=== PATIENT | female | born 1960 | race Caucasian/White ===

== ENCOUNTER → 2016-09-14 | Outpatient (CLI) | payer BC ==
--- NOTE | 2016-09-15 07:16 | MM ---
Reason for exam: screening (asymptomatic). Last mammogram was performed 1 year ago. History: Patient is postmenopausal and history of other cancer. Family history of breast cancer in mother at age 74. Benign left mammotome panel of the left breast, December 09, 2011. Benign left mammotome panel of the left breast, December 09, 2011. Physical Findings: A clinical breast exam by your physician is recommended on an annual basis and results should be correlated with mammographic findings. MG Screening Mammo w CAD Bilateral CC and MLO view(s) were taken. Prior study comparison: September 06, 2015, bilateral MG screening mammo w CAD. August 14, 2014, bilateral MG diagnostic mammo w CAD JENNIFER. There are scattered fibroglandular densities. Previous mammotome biopsy in the left breast x 2. No significant changes when compared with prior studies. ASSESSMENT: Benign, BI-RAD 2 RECOMMENDATION: Routine screening mammogram of both breasts in 1 year.
== END | disposition home or self-care (01) ==
LOC: RADMAMWWP 07:38
PROVIDERS: ATTEND Obstetrics & Gynecology
DX: Z12.31 Encounter for screening mammogram for malignant neoplasm of breast (principal)

== ENCOUNTER → 2017-09-27 | Outpatient (CLI) | payer BC ==
--- NOTE | 2017-09-28 09:36 | MM ---
Reason for exam: screening (asymptomatic). Last mammogram was performed 1 year ago. History: Patient is postmenopausal and history of other cancer. Family history of breast cancer in mother at age 74. Benign left mammotome panel of the left breast, December 09, 2011. Benign left mammotome panel of the left breast, December 09, 2011. Physical Findings: A clinical breast exam by your physician is recommended on an annual basis and results should be correlated with mammographic findings. MG 3D Screening Mammo W/Cad Bilateral CC and MLO view(s) were taken. Prior study comparison: September 14, 2016, bilateral MG screening mammo w CAD. September 06, 2015, bilateral MG screening mammo w CAD. The breast tissue is heterogeneously dense. This may lower the sensitivity of mammography. Previous mammotome biopsy in the left breast. No significant changes when compared with prior studies. ASSESSMENT: Benign, BI-RAD 2 RECOMMENDATION: Routine screening mammogram of both breasts in 1 year.
== END | disposition home or self-care (01) ==
LOC: RADMAMWWP 07:13
PROVIDERS: ATTEND Obstetrics & Gynecology
DX: Z12.31 Encounter for screening mammogram for malignant neoplasm of breast (principal)
CPT/HCPCS: 77063; 77067

== ENCOUNTER → 2018-09-28 | Outpatient (CLI) | payer BC ==
--- NOTE | 2018-09-29 10:08 | MM ---
Reason for exam: screening (asymptomatic). Last mammogram was performed 1 year ago. History: Patient is postmenopausal and history of other cancer. Family history of breast cancer in mother at age 74. Benign left mammotome panel of the left breast, December 09, 2011. Benign left mammotome panel of the left breast, December 09, 2011. Physical Findings: A clinical breast exam by your physician is recommended on an annual basis and results should be correlated with mammographic findings. MG 3D Screening Mammo W/Cad Bilateral CC and MLO view(s) were taken. Prior study comparison: September 27, 2017, bilateral MG 3d screening mammo w/cad. September 14, 2016, bilateral MG screening mammo w CAD. There are scattered fibroglandular densities. Previous mammotome biopsy in the left breast. There is chronic nodularity bilaterally. No significant changes when compared with prior studies. ASSESSMENT: Benign, BI-RAD 2 RECOMMENDATION: Routine screening mammogram of both breasts in 1 year.
== END | disposition home or self-care (01) ==
LOC: RADMAMWWP 07:50
PROVIDERS: ATTEND Obstetrics & Gynecology
DX: Z12.31 Encounter for screening mammogram for malignant neoplasm of breast (principal)
CPT/HCPCS: 77063; 77067

== ENCOUNTER → 2019-10-05 | Outpatient (CLI) | payer BC ==
--- NOTE | 2019-10-06 10:58 | MM ---
Reason for exam: screening (asymptomatic). Last mammogram was performed 1 year ago. History: Patient is postmenopausal and history of other cancer. Family history of breast cancer in mother at age 74. Benign left mammotome panel of the left breast, December 09, 2011. Benign left mammotome panel of the left breast, December 09, 2011. Physical Findings: A clinical breast exam by your physician is recommended on an annual basis and results should be correlated with mammographic findings. MG 3D Screening Mammo W/Cad Bilateral CC and MLO view(s) were taken. Prior study comparison: September 28, 2018, bilateral MG 3d screening mammo w/cad. September 27, 2017, bilateral MG 3d screening mammo w/cad. The breast tissue is heterogeneously dense. This may lower the sensitivity of mammography. Finding: There is a typically benign multiple varied sized oval round masses in the right breast consistent with waxing and waning cysts. ASSESSMENT: Benign, BI-RAD 2 RECOMMENDATION: Routine screening mammogram of both breasts in 1 year.
== END | disposition home or self-care (01) ==
LOC: RADMAMWWP 08:33
PROVIDERS: ATTEND Obstetrics & Gynecology
DX: Z12.31 Encounter for screening mammogram for malignant neoplasm of breast (principal)
CPT/HCPCS: 77063; 77067

== ENCOUNTER → 2019-11-07 | Outpatient (CLI) | payer BC | END | disposition home or self-care (01) | LOC: RADBDWWP 07:08 | PROVIDERS: ATTEND Obstetrics & Gynecology | DX: Z53.9 Procedure and treatment not carried out, unspecified reason (principal) ==

== ENCOUNTER → 2019-11-17 | Outpatient (CLI) | payer BC ==
--- NOTE | 2019-11-17 18:34 | BD ---
EXAMINATION TYPE: Axial Bone Density DATE OF EXAM: 11/17/2019 COMPARISON: 08.14.2014 CLINICAL HISTORY: 58 YR OLD FEMALE.....ICD-10 CODE: Z78.0 POST MENOPAUSAL Height: 64.4 Weight: 281 FRAX RISK QUESTIONS: NOTHING TO NOTE HERE RISK FACTORS HISTORY OF: Postmenopausal woman: YES, ABLATION, 8 YRS AGO...UNSURE OF WHEN HORMONAL MENOPAUSE OCCURED Hyperparathyroidism: NO Adrenal Insufficiency: NO MEDICATIONS: Additional Medications: MULTIVITAMIN ONLY Additional History: NOTHING ADDITIONAL TO ADD EXAM MEASUREMENTS: Bone mineral densitometry was performed using the True Fit System. Bone mineral density as measured about the Lumbar spine is: ----- L1-L4(G/cm2): 1.836 T Score Values are as follows: ----- L1 5.0 ----- L2: 4.3 ----- L3: 6.5 ----- L4: 5.5 ----- L1-L4: 5.5 Bone mineral density has: Increased 5.3% since study of: 08.14.2014 Bone mineral density about the R hip (g/cm2): 1.134 Bone mineral density about the L hip (g/cm2): 1.378 T Score values are as follows: -----R Neck: 1.0 -----L Neck: 1.4 -----R Total: 2.6 -----L Total: 2.9 Bone mineral density has: Increased 4.8% since study of: 08.14.2014 FRAX%s: THERE IS A 4.1% CHANCE FOR A MAJOR OSTEOPOROTIC FX AND A 0.0% FOR HIP.....PROBABILITY FOR F X IN 10 YRS TIME IMPRESSION: Normal (Values between +1 and -1 indicate normal bone mass). Consider repeating this study in 5 year s or sooner if there is some new clinical indication. NOTE: T-SCORE=SD OF THE YOUNG ADULT MEAN.
== END | disposition home or self-care (01) ==
LOC: LABWHC1 07:15
PROVIDERS: ATTEND Obstetrics & Gynecology
DX: Z78.0 Asymptomatic menopausal state (principal)
CPT/HCPCS: 77080

== ENCOUNTER 2020-10-06 14:49 | Emergency (ER) | payer BC ==
[2020-10-06 14:58] VITALS: TEMP 98.3
[2020-10-06] MEDS ORDERED: SODIUM CHLORIDE 0.9% 500 ML 500 ML IV STA (15:25)
--- NOTE | 2020-10-06 15:38 | ED ---
General Adult HPI - General Chief complaint: Arrhythmia/Palpitations Stated complaint: Palpitations Time Seen by Provider: 10/06/20 15:25 Source: patient, RN notes reviewed, old records reviewed Mode of arrival: wheelchair Limitations: no limitations - History of Present Illness Initial comments: 59-year-old female presenting with palpitations, history of anxiety and recurrent panic attacks. She states she had nothing to be anxious about she was undergoing a family barbecue. She was swimming in the pool, began feeling palpitations. No associated pain. She states she got a dry mouth and some nausea. She did recently start Prozac about 9 days ago. She does have history of previous panic attacks. Symptoms have improved time my evaluation she still some nausea. No chest pain or abdominal pain. No focal numbness or weakness. - Related Data Home Medications Medication Instructions Recorded Confirmed ALPRAZolam [Xanax] 0.5 mg PO TID PRN 09/16/15 09/16/15 FLUoxetine HCL [PROzac] 40 mg PO DAILY 09/16/15 09/16/15 Allergies Allergy/AdvReac Type Severity Reaction Status Date / Time shellfish derived [Shellfish] Allergy Unknown Verified 10/06/20 14:58 Review of Systems ROS Statement: Those systems with pertinent positive or pertinent negative responses have been documented in the HPI. ROS Other: All systems not noted in ROS Statement are negative. Past Medical History Past Medical History: No Reported History History of Any Multi-Drug Resistant Organisms: None Reported Additional Past Surgical History / Comment(s): D&C, cone biopsy Past Psychological History: Anxiety Smoking Status: Never smoker Past Alcohol Use History: None Reported Past Drug Use History: None Reported General Exam Limitations: no limitations General appearance: alert, in no apparent distress Head exam: Present: atraumatic, normocephalic Eye exam: Present: normal appearance, PERRL ENT exam: Present: normal exam Neck exam: Present: normal inspection. Absent: tenderness, meningismus Respiratory exam: Present: normal lung sounds bilaterally. Absent: respiratory distress, wheezes Cardiovascular Exam: Present: regular rate, normal rhythm GI/Abdominal exam: Present: soft. Absent: distended, tenderness, guarding Extremities exam: Present: normal inspection, normal capillary refill. Absent: pedal edema Neurological exam: Present: alert, oriented X3, CN II-XII intact. Absent: motor sensory deficit Psychiatric exam: Present: anxious Skin exam: Present: warm, dry, intact Course Vital Signs 10/06/20 10/06/20 14:56 16:18 Temperature 98.3 F Pulse Rate 79 83 Respiratory 20 18 Rate Blood Pressure 146/76 162/73 O2 Sat by Pulse 100 98 Oximetry EKG Findings - EKG Comments: EKG Findings:: EKG: Normal sinus rhythm, rate of 77, WA interval 168, QRS d uration 96, QTC 420, no ST segment elevation, there is some baseline artifact. Medical Decision Making - Medical Decision Making 29-year-old female with palpitations, anxiety and nausea. Patient well- appearing. Patient is in sinus rhythm. Chest x-ray is clear. She has normal CBC, normal CMP, negative troponin, negative urinalysis. She is reassured and believes this is probably related to her Prozac. She will contact her primary care physician tomorrow. Return parameters are discussed. - Lab Data Result diagrams: 10/06/20 15:32 10/06/20 15:32 Lab Results 10/06/20 10/06/20 10/06/20 Range/Units 15:32 15:32 15:32 WBC 5.8 (3.8-10.6) k/uL RBC 4.89 (3.80-5.40) m/uL Hgb 15.1 (11.4-16.0) gm/dL Hct 45.0 (34.0-46.0) % MCV 91.9 (80.0-100.0) fL MCH 30.8 (25.0-35.0) pg MCHC 33.5 (31.0-37.0) g/dL RDW 13.0 (11.5-15.5) % Plt Count 282 (150-450) k/uL MPV 6.7 Neutrophils % 61 % Lymphocytes % 28 % Monocytes % 6 % Eosinophils % 2 % Basophils % 1 % Neutrophils # 3.5 (1.3-7.7) k/uL Lymphocytes # 1.6 (1.0-4.8) k/uL Monocytes # 0.3 (0-1.0) k/uL Eosinophils # 0.1 (0-0.7) k/uL Basophils # 0.1 (0-0.2) k/uL PT 9.8 (9.0-12.0) sec INR 0.9 (<1.2) APTT 22.7 (22.0-30.0) sec Sodium (137-145) mmol/L Potassium (3.5-5.1) mmol/L Chloride (98-107) mmol/L Carbon Dioxide (22-30) mmol/L Anion Gap mmol/L BUN (7-17) mg/dL Creatinine (0.52-1.04) mg/dL Est GFR (CKD-EPI)AfAm (>60 ml/min/1.73 sqM) Est GFR (CKD-EPI)NonAf (>60 ml/min/1.73 sqM) Glucose (74-99) mg/dL Calcium (8.4-10.2) mg/dL Magnesium (1.6-2.3) mg/dL Total Bilirubin (0.2-1.3) mg/dL AST (14-36) U/L ALT (4-34) U/L Alkaline Phosphatase (38-126) U/L Troponin I (0.000-0.034) ng/mL Total Protein (6.3-8.2) g/dL Albumin (3.5-5.0) g/dL Urine Color Yellow Urine Appearance Cloudy H (Clear) Urine pH 6.5 (5.0-8.0) Ur Specific [place] 1.024 (1.001-1.035) Urine Protein Negative (Negative) Urine Glucose (UA) Negative (Negative) Urine Ketones Negative (Negative) Urine Blood Negative (Negative) Urine Nitrite Negative (Negative) Urine Bilirubin Negative (Negative) Urine Urobilinogen <2.0 (<2.0) mg/dL Ur Leukocyte Esterase Negative (Negative) Urine RBC 2 (0-5) /hpf Urine WBC 2 (0-5) /hpf Ur Squamous Epith Cells 6 H (0-4) /hpf Urine Bacteria Rare H (None) /hpf Hyaline Casts 1 (0-2) /lpf Urine Mucus Rare H (None) /hpf 10/06/20 10/06/20 Range/Units 15:32 15:32 WBC (3.8-10.6) k/uL RBC (3.80-5.40) m/uL Hgb (11.4-16.0) gm/dL Hct (34.0-46.0) % MCV (80.0-100.0) fL MCH (25.0-35.0) pg MCHC (31.0-37.0) g/dL RDW (11.5-15.5) % Plt Count (150-450) k/uL MPV Neutrophils % % Lymphocytes % % Monocytes % % Eosinophils % % Basophils % % Neutrophils # (1.3-7.7) k/uL Lymphocytes # (1.0-4.8) k/uL Monocytes # (0-1.0) k/uL Eosinophils # (0-0.7) k/uL Basophils # (0-0.2) k/uL PT (9.0-12.0) sec INR (<1.2) APTT (22.0-30.0) sec Sodium 142 (137-145) mmol/L Potassium 4.4 (3.5-5.1) mmol/L Chloride 106 (98-107) mmol/L Carbon Dioxide 24 (22-30) mmol/L Anion Gap 12 mmol/L BUN 18 H (7-17) mg/dL Creatinine 0.66 (0.52-1.04) mg/dL Est GFR (CKD-EPI)AfAm >90 (>60 ml/min/1.73 sqM) Est GFR (CKD-EPI)NonAf >90 (>60 ml/min/1.73 sqM) Glucose 138 H (74-99) mg/dL Calcium 9.1 (8.4-10.2) mg/dL Magnesium 2.2 (1.6-2.3) mg/dL Total Bilirubin 0.1 L (0.2-1.3) mg/dL AST 23 (14-36) U/L ALT 20 (4-34) U/L Alkaline Phosphatase 66 (38-126) U/L Troponin I <0.012 (0.000-0.034) ng/mL Total Protein 7.0 (6.3-8.2) g/dL Albumin 4.1 (3.5-5.0) g/dL Urine Color Urine Appearance (Clear) Urine pH (5.0-8.0) Ur Specific [place] (1.001-1.035) Urine Protein (Negative) Urine Glucose (UA) (Negative) Urine Ketones (Negative) Urine Blood (Negative) Urine Nitrite (Negative) Urine Bilirubin (Negative) Urine Urobilinogen (<2.0) mg/dL Ur Leukocyte Esterase (Negative) Urine RBC (0-5) /hpf Urine WBC (0-5) /hpf Ur Squamous Epith Cells (0-4) /hpf Urine Bacteria (None) /hpf Hyaline Casts (0-2) /lpf Urine Mucus (None) /hpf Disposition Clinical Impression: Palpitations Disposition: HOME SELF-CARE Condition: Good Instructions (If sedation given, give patient instructions): Heart Palpitations (ED) Is patient prescribed a controlled substance at d/c from ED?: No Referrals: Paulino Nieves MD [Primary Care Provider] - 1-2 days Time of Disposition: 16:54
[2020-10-06 15:42] LABS: Basophils # (A) 0.1 k/uL (0-0.2); Basophils % (A) 1 %; Eosinophils # (A) 0.1 k/uL (0-0.7); Eosinophils % (A) 2 %; HGB 15.1 gm/dL (11.4-16.0); Lymphocytes # (A) 1.6 k/uL (1.0-4.8); Lymphocytes % (A) 28 %; MCH 30.8 pg (25.0-35.0); MCHC 33.5 g/dL (31.0-37.0); MCV 91.9 fL (80.0-100.0); Mean Platelet Volume 6.7; Monocytes # (A) 0.3 k/uL (0-1.0); Monocytes % (A) 6 %; Neutrophils # (A) 3.5 k/uL (1.3-7.7); Neutrophils % (A) 61 %; Platelet Count 282 k/uL (150-450); RBC 4.89 m/uL (3.80-5.40); WBC 5.8 k/uL (3.8-10.6)
[2020-10-06 15:50] LABS: INR 0.9 (<1.2); Partial Thromboplastin Time 22.7 sec (22.0-30.0); Prothrombin Time 9.8 sec (9.0-12.0)
[2020-10-06 15:54] LABS: ALT 20 U/L (4-34); AST 23 U/L (14-36); African American GFR (CKD) >90 (>60 ml/min/1.73 sqM); Albumin 4.1 g/dL (3.5-5.0); Alkaline Phosphatase 66 U/L (38-126); Anion Gap 12 mmol/L; Blood Urea Nitrogen 18 mg/dL (7-17); Calcium 9.1 mg/dL (8.4-10.2); Carbon Dioxide 24 mmol/L (22-30); Chloride 106 mmol/L (98-107); Glucose 138 mg/dL (74-99); Magnesium 2.2 mg/dL (1.6-2.3); Non-African American GFR(CKD) >90 (>60 ml/min/1.73 sqM); Potassium 4.4 mmol/L (3.5-5.1); Sodium 142 mmol/L (137-145); Total Bilirubin 0.1 mg/dL (0.2-1.3)
--- NOTE | 2020-10-06 16:10 | XR ---
EXAMINATION TYPE: XR chest 2V DATE OF EXAM: 10/06/2020 COMPARISON: 09/16/2015 HISTORY: Dysrhythmia TECHNIQUE: FINDINGS: Heart and mediastinum are normal. Lungs are clear of consolidation. There are no hilar mass es. There are chest leads. There is no evidence of pleural effusion. Bony thorax is intact. There is minimal anterior wedging of mid thoracic vertebra without change. IMPRESSION: No active cardiopulmonary disease. No change.
[2020-10-06 16:20] VITALS: RESP 18
[2020-10-06 16:47] LABS: Appearance,Urine Cloudy (Clear); Bacteria,Urine Rare /hpf; Bilirubin,Urine Negative (Negative); Blood,Urine Negative (Negative); Color,Urine Yellow; Glucose,Urine (UA) Negative (Negative); Hyaline Casts,Urine 1 /lpf (0-2); Ketones,Urine Negative (Negative); Leukocyte Esterase,Urine Negative (Negative); Mucus,Urine Rare /hpf; Nitrite,Urine Negative (Negative); PH, Urine 6.5 (5.0-8.0); Protein,Urine Negative (Negative); RBC,Urine 2 /hpf (0-5); Specific Gravity,Urine 1.024 (1.001-1.035); Squamous Epithelial Cell,Urine 6 /hpf (0-4); Urobilinogen,Urine <2.0 mg/dL (<2.0); WBC,Urine 2 /hpf (0-5)
[2020-10-06 17:31] VITALS: BP 143/72; PULSE 71
== END 2020-10-06 17:26 | disposition home or self-care (01) ==
LOC: EC 14:49
DX: R00.2 Palpitations (principal); R11.0 Nausea; R68.2 Dry mouth, unspecified; F41.9 Anxiety disorder, unspecified; Z91.013 Allergy to seafood
CPT/HCPCS: 36415; 71046; 80053; 81001; 83735; 84484; 85025; 85610; 85730; 93005; 99285

== ENCOUNTER → 2020-10-15 | Outpatient (CLI) | payer BC ==
--- NOTE | 2020-10-16 09:05 | MM ---
Reason for exam: screening (asymptomatic). Last mammogram was performed 1 year ago. History: Patient is postmenopausal and history of other cancer. Family history of breast cancer in mother at age 74. Benign left mammotome panel of the left breast, December 09, 2011. Benign left mammotome panel of the left breast, December 09, 2011. Physical Findings: A clinical breast exam by your physician is recommended on an annual basis and results should be correlated with mammographic findings. MG 3D Screening Mammo W/Cad Bilateral CC and MLO view(s) were taken. Prior study comparison: October 05, 2019, bilateral MG 3d screening mammo w/cad. September 28, 2018, bilateral MG 3d screening mammo w/cad. The breast tissue is heterogeneously dense. This may lower the sensitivity of mammography. New indeterminate calcifications upper outer quadrant right breast zone B, increasing nodule seen as well. This finding is changed when compared with previous exams. ASSESSMENT: Incomplete: need additional imaging evaluation, BI-RAD 0 RECOMMENDATION: Special view mammogram of the right breast. [facility] will attempt to contact patient to return for supplemental views.
== END | disposition home or self-care (01) ==
LOC: RADMAMWWP 08:10
PROVIDERS: ATTEND Obstetrics & Gynecology
DX: Z12.31 Encounter for screening mammogram for malignant neoplasm of breast (principal); Z80.3 Family history of malignant neoplasm of breast
CPT/HCPCS: 77063; 77067

== ENCOUNTER → 2020-10-17 | Outpatient (CLI) | payer BC ==
--- NOTE | 2020-10-17 08:31 | MM ---
Reason for exam: additional evaluation requested from abnormal screening. Last mammogram was performed less than 1 month ago. History: Patient is postmenopausal and history of other cancer. Family history of breast cancer in mother at age 74. Benign left mammotome panel of the left breast, December 09, 2011. Benign left mammotome panel of the left breast, December 09, 2011. Physical Findings: Nurse did not find any significant physical abnormalities on exam. MG 3D Work Up W/Cad RT CC with magnification, LM with magnification, and LM view(s) were taken of the right breast. Prior study comparison: October 15, 2020, bilateral MG 3d screening mammo w/cad. October 05, 2019, bilateral MG 3d screening mammo w/cad. The breast tissue is heterogeneously dense. This may lower the sensitivity of mammography. There is a grouping of layering calcifications in the right upper outer quadrant associated with well circumscribed densities consistent with milk of calcium and cystic changes. Finding similar to 2019 but increased since 2019. Follow up diagnostic mammogram in 12 months with magnification recommended. These results were verbally communicated with the patient and result sheet given to the patient on 10/17/20. ASSESSMENT: Probably benign, BI-RAD 3 RECOMMENDATION: Follow-up diagnostic mammogram of both breasts in 12 months.
== END | disposition home or self-care (01) ==
LOC: RADMAMWWP 07:31
PROVIDERS: ATTEND Obstetrics & Gynecology
DX: R92.8 Other abnormal and inconclusive findings on diagnostic imaging of breast (principal)
CPT/HCPCS: 77061; 77065

== ENCOUNTER 2020-12-25 16:44 | Emergency (ER) | payer BC ==
[2020-12-25 16:57] VITALS: TEMP 98.8
[2020-12-25] MEDS ORDERED: ONDANSETRON 4 MG/2 ML VIAL IVP STA (17:30)
[2020-12-25] MEDS ORDERED: LORazepam 2 MG/ML INJ IV STA (17:30)
[2020-12-25] MEDS ORDERED: SODIUM CHLORIDE 0.9% 1,000 ML IV ONE (17:30)
[2020-12-25 18:01] LABS: Basophils % (A) 0 %; Eosinophils # (A) 0.1 k/uL (0-0.7); Eosinophils % (A) 1 %; HCT 47.8 % (34.0-46.0); HGB 15.6 gm/dL (11.4-16.0); Lymphocytes # (A) 1.2 k/uL (1.0-4.8); Lymphocytes % (A) 13 %; MCH 30.9 pg (25.0-35.0); MCHC 32.6 g/dL (31.0-37.0); MCV 94.8 fL (80.0-100.0); Mean Platelet Volume 7.2; Monocytes # (A) 0.3 k/uL (0-1.0); Monocytes % (A) 3 %; Neutrophils # (A) 7.5 k/uL (1.3-7.7); Neutrophils % (A) 82 %; Platelet Count 267 k/uL (150-450); RBC 5.04 m/uL (3.80-5.40); WBC 9.1 k/uL (3.8-10.6)
[2020-12-25 18:08] LABS: ALT 26 U/L (4-34); AST 29 U/L (14-36); African American GFR (CKD) >90 (>60 ml/min/1.73 sqM); Albumin 4.3 g/dL (3.5-5.0); Alkaline Phosphatase 61 U/L (38-126); Anion Gap 8 mmol/L; Blood Urea Nitrogen 13 mg/dL (7-17); Calcium 9.3 mg/dL (8.4-10.2); Carbon Dioxide 27 mmol/L (22-30); Chloride 105 mmol/L (98-107); Glucose 131 mg/dL (74-99); Magnesium 2.3 mg/dL (1.6-2.3); Non-African American GFR(CKD) 84 (>60 ml/min/1.73 sqM); Potassium 4.5 mmol/L (3.5-5.1); Sodium 140 mmol/L (137-145); Total Bilirubin 0.4 mg/dL (0.2-1.3); Total Protein 7.5 g/dL (6.3-8.2)
--- NOTE | 2020-12-25 18:30 | ED ---
Anxiety HPI - General Chief Complaint: Anxiety Stated Complaint: Paniac attack Time Seen by Provider: 12/25/20 17:06 Source: patient, RN notes reviewed Mode of arrival: ambulatory Limitations: no limitations - History of Present Illness Initial Comments: 60-year-old female presents emergency Department chief complaint anxiety issues. Patient states she has severe anxiety, panic attack states earlier today she started having some that he issues she states she gets upset stomach, diarrhea with this states that she normally can take a Xanax and goes away. She only took a half a Xanax did not feel any better so she figured she should come to the emergency department. Denies any chest pain no palpitations no headache no fevers or chills no complaints of shortness breath this time. - Related Data Home Medications: Home Medications Medication Instructions Recorded Confirmed ALPRAZolam [Xanax] 0.5 mg PO DAILY PRN 09/16/15 12/25/20 Ascorbic Acid [Vitamin C] 1,000 mg PO DAILY 12/25/20 12/25/20 Cyanocobalamin (Vitamin B-12) 1,000 mcg PO DAILY 12/25/20 12/25/20 [Vitamin B-12] Multivitamins, Thera [Multivitamin 1 tab PO DAILY 12/25/20 12/25/20 (formulary)] Allergies/Adverse Reactions: Allergies Allergy/AdvReac Type Severity Reaction Status Date / Time shellfish derived [Shellfish] Allergy Unknown Verified 12/25/20 17:58 Review of Systems ROS Statement: Those systems with pertinent positive or pertinent negative responses have been documented in the HPI. ROS Other: All systems not noted in ROS Statement are negative. Past Medical History Past Medical History: No Reported History History of Any Multi-Drug Resistant Organisms: None Reported Additional Past Surgical History / Comment(s): D&C, cone biopsy Past Psychological History: Anxiety Smoking Status: Never smoker Past Alcohol Use History: None Reported Past Drug Use History: None Reported General Exam Limitations: no limitations General appearance: alert, in no apparent distress, anxious Head exam: Present: atraumatic, normocephalic, normal inspection Eye exam: Present: normal appearance, PERRL, EOMI. Absent: scleral icterus, conjunctival injection, periorbital swelling ENT exam: Present: normal exam, normal oropharynx, mucous membranes moist Neck exam: Present: normal inspection, full ROM. Absent: tenderness, meningismus, lymphadenopathy Respiratory exam: Present: normal lung sounds bilaterally. Absent: respiratory distress, wheezes, rales, rhonchi, stridor Cardiovascular Exam: Present: regular rate, normal rhythm, normal heart sounds. Absent: systolic murmur, diastolic murmur, rubs, gallop, clicks Neurological exam: Present: alert, oriented X3, CN II-XII intact Skin exam: Present: warm, dry, intact, normal color. Absent: rash Course Vital Signs 12/25/20 16:56 Temperature 98.8 F Pulse Rate 82 Respiratory 16 Rate Blood Pressure 157/87 O2 Sat by Pulse 99 Oximetry Medical Decision Making - Medical Decision Making Patient has normal lab EKG unremarkable. She is improved at this point patient discharged in stable condition. - Lab Data Result diagrams: 12/25/20 17:45 12/25/20 17:45 Lab Results 12/25/20 12/25/20 12/25/20 Range/Units 17:45 17:45 17:45 WBC 9.1 (3.8-10.6) k/uL RBC 5.04 (3.80-5.40) m/uL Hgb 15.6 (11.4-16.0) gm/dL Hct 47.8 H (34.0-46.0) % MCV 94.8 (80.0-100.0) fL MCH 30.9 (25.0-35.0) pg MCHC 32.6 (31.0-37.0) g/dL RDW 13.0 (11.5-15.5) % Plt Count 267 (150-450) k/uL MPV 7.2 Neutrophils % 82 % Lymphocytes % 13 % Monocytes % 3 % Eosinophils % 1 % Basophils % 0 % Neutrophils # 7.5 (1.3-7.7) k/uL Lymphocytes # 1.2 (1.0-4.8) k/uL Monocytes # 0.3 (0-1.0) k/uL Eosinophils # 0.1 (0-0.7) k/uL Basophils # 0.0 (0-0.2) k/uL Sodium 140 (137-145) mmol/L Potassium 4.5 (3.5-5.1) mmol/L Chloride 105 (98-107) mmol/L Carbon Dioxide 27 (22-30) mmol/L Anion Gap 8 mmol/L BUN 13 (7-17) mg/dL Creatinine 0.79 (0.52-1.04) mg/dL Est GFR (CKD-EPI)AfAm >90 (>60 ml/min/1.73 sqM) Est GFR (CKD-EPI)NonAf 84 (>60 ml/min/1.73 sqM) Glucose 131 H (74-99) mg/dL Calcium 9.3 (8.4-10.2) mg/dL Magnesium 2.3 (1.6-2.3) mg/dL Total Bilirubin 0.4 (0.2-1.3) mg/dL AST 29 (14-36) U/L ALT 26 (4-34) U/L Alkaline Phosphatase 61 (38-126) U/L Troponin I <0.012 (0.000-0.034) ng/mL Total Protein 7.5 (6.3-8.2) g/dL Albumin 4.3 (3.5-5.0) g/dL Disposition Clinical Impression: Acute anxiety Disposition: HOME SELF-CARE Condition: Stable Instructions (If sedation given, give patient instructions): Generalized Anxiety Disorder (ED) Additional Instructions: Please return to the Emergency Department if symptoms worsen or any other concerns. Is patient prescribed a controlled substance at d/c from ED?: No Referrals: Paulino Nieves MD [Primary Care Provider] - 1-2 days Time of Disposition: 18:30
[2020-12-25 18:39] VITALS: BP 138/70; PULSE 68; RESP 18
== END 2020-12-25 18:44 | disposition home or self-care (01) ==
LOC: EC 16:44
DX: F41.9 Anxiety disorder, unspecified (principal); R19.7 Diarrhea, unspecified; Z91.013 Allergy to seafood
CPT/HCPCS: 36415; 93005; 80053; 83735; 84484; 85025; 99284; 96374; 96375; 96361; J2060; J2405

== ENCOUNTER → 2021-10-21 | Outpatient (CLI) | payer BC ==
--- NOTE | 2021-10-21 11:32 | MM ---
Reason for Exam: Additional evaluation requested from prior study. Last screening mammogram was performed 12 month(s) ago. Patient History: Menarche at age 14. First Full-Term at age 28. Postmenopausal. Other cancer. 12/09/2011, Benign Core Biopsy on the left side. 12/09/2011, Benign Core Biopsy on the left side. Mother had breast cancer, age 74. Risk Values: Maral 5 year model risk: 3.9%. NCI Lifetime model risk: 21.0%. Prior Study Comparison: 10/05/2019 Bilateral Screening Mammogram, [facility]. 10/15/2020 Bilateral Screening Mammogram, [facility] 10/17/2020 Right Diagnostic Mammogram, [facility]. Tissue Density: There are scattered fibroglandular densities. Findings: Analyzed By CAD. There are indeterminate grouped calcifications in the upper outer right breast. Previous mammotome biopsy in the left breast. Chronic nodularity bilaterally. Findings: Right limited breast ultrasound including focal area of concern, retroareolar and axilla demonstrates a 15 x 14 x 13mm oval, cystic lesion with calcifications at 10 o'clock, 3cm from the nipple. Overall Assessment: Suspicious, BI-RAD 4 Assessment: MG 3D diag mammo w/cad JENNIFER - Bilateral: Incomplete: need additional imaging evaluation, BI-RAD 0. US breast limited RT - Right: Suspicious, BI-RAD 4. Management: Stereotactic Core Biopsy of the right breast. Electronically signed and approved by: Paulino Dubose M.D. Radiologis
== END | disposition home or self-care (01) ==
LOC: RADMAMWWP 07:08
PROVIDERS: ATTEND Obstetrics & Gynecology
DX: R92.8 Other abnormal and inconclusive findings on diagnostic imaging of breast (principal)
CPT/HCPCS: 77062; 77066

== ENCOUNTER → 2021-11-10 | Day surgery (SDC) | payer BC ==
[2021-11-10 09:45] VITALS: RESP 16
[2021-11-10 10:41] VITALS: BP 134/76; PULSE 67; TEMP 98.1
--- NOTE | 2021-11-13 11:26 | MM ---
Risk Values: Maral 5 year model risk: 3.9%. NCI Lifetime model risk: 21.0%. Prior Study Comparison: 10/15/2020 Bilateral Screening Mammogram, [facility]. 10/17/2020 Right Diagnostic Mammogram, [facility]. 10/21/2021 Bilateral MG 3D diag mammo w/cad JENNIFER, [facility]. Pathology Description: Approach: Lateral to Medial Needle Type: Eviva Cores: 6 Skin Nicks: 1 Gauge: 9 The procedure of stereotactic guided core biopsy was explained to the patient. Benefits, alternatives, and risks were discussed. An informed consent was then obtained. Cranial caudal approach was utilized. Radiology performed the procedure. Targeting was provided by radiology. The skin and deeper breast tissue was anesthetized with 1% lidocaine. The calcifications were targeted. Needle is advanced and prefire position. Positioning was confirmed and postfire images were obtained following final positioning. 6 core samples were obtained. Specimen: Specimen contains the targeted calcifications. The patient tolerated the procedure well without any immediate complication. The patient was kept in the radiology department for short stay after the procedure and then sent for postprocedure mammogram. Postprocedure mammogram: Core marker is within the expected region of the calcifications. Impression: 1. Successful stereotactic core biopsy right breast calcifications. Pathology Results: Result: Benign, Duct ectasia. RIGHT BREAST, STEREOTACTIC CORE BIOPSY: Ruptured benign cyst of favored mammary duct ectasia with chronic mastitis, evidence of remote hemorrhage, focal microcalcification and proliferative fibrocystic change with columnar cell change, apocrine metaplasia and florid usual ductal hyperplasia. Calcium oxalate microcalcification and fibrous scar identified. Overall Assessment: Benign Management: Diagnostic Mammogram of the right breast in 6 months. Electronically signed and approved by: Rangel Levine D.O. Radiologis
== END ==
LOC: RADMAMWWP 09:22
PROVIDERS: ATTEND Surgery
DX: N60.01 Solitary cyst of right breast (principal); N61.0 Mastitis without abscess; N60.81 Other benign mammary dysplasias of right breast; N62 Hypertrophy of breast; R92.0 Mammographic microcalcification found on diagnostic imaging of breast; R92.8 Other abnormal and inconclusive findings on diagnostic imaging of breast; Z91.013 Allergy to seafood
CPT/HCPCS: 88305; 19081; A4648; J2001

== ENCOUNTER → 2022-11-12 | Outpatient (CLI) | payer BC ==
--- NOTE | 2022-11-13 08:32 | MM ---
Reason for Exam: Screening (asymptomatic). Last mammogram was performed 1 year(s) and 1 month(s) ago. Patient History: Menarche at age 14. First Full-Term at age 28. Postmenopausal. Other cancer. 11/10/2021, Benign MG stereo VAD BX RT on the right side. 12/09/2011, Benign Core Biopsy on the left side. 12/09/2011, Benign Core Biopsy on the left side. Mother had breast cancer, age 74. Risk Values: Maral 5 year model risk: 4.1%. NCI Lifetime model risk: 20.6%. Prior Study Comparison: 10/17/2020 Right Diagnostic Mammogram, [facility]. 10/21/2021 Bilateral MG 3D diag mammo w/cad JENNIFER, [facility]. 05/14/2022 Right MG 3D diag mammo w/cad RT, [facility]. Tissue Density: The breast tissue is heterogeneously dense. This may lower the sensitivity of mammography. Findings: Analyzed By CAD. There is no suspicious group of microcalcifications or new suspicious mass in either breast. Overall Assessment: Benign, BI-RAD 2 Management: Screening Mammogram of both breasts in 1 year. . Patient should continue monthly self-breast exams. A clinical breast exam by your physician is recommended on an annual basis. This exam should not preclude additional follow-up of suspicious palpable abnormalities. Note on Maral scores and lifetime risk: 1. A Maral score greater than 3% is considered moderate risk. If this is the case, consider specialist referral to assess eligibility for a risk reducing agent. 2. If overall lifetime risk for the development of breast cancer is 20% or higher, the patient may qualify for future screening with alternating mammogram and breast MRI. Electronically signed and approved by: Patricio Walters M.D. Radiologis
== END | disposition home or self-care (01) ==
LOC: RADMAMWWP 09:57
PROVIDERS: ATTEND Surgery
DX: Z12.31 Encounter for screening mammogram for malignant neoplasm of breast (principal); Z78.0 Asymptomatic menopausal state; Z80.3 Family history of malignant neoplasm of breast
CPT/HCPCS: 77063; 77067

== ENCOUNTER → 2023-11-17 | Outpatient (CLI) | payer BC ==
--- NOTE | 2023-12-07 17:12 | WWPN ---
[facility] - PROGRESS NOTE SUBJECTIVE: The patient had a negative Pap smear on 11/17/2023. The patient was notified by phone on 11/30/2023. Her mammogram is still pending. She was instructed to call in 2 weeks if she has not received her mammogram results. IMPRESSION: Negative Pap smear with history of cervical cancer. PLAN: The patient will return in 1 year for her well-woman examination. We will continue yearly Pap smears because of her history. MMODL / IJN: [id number] /
--- NOTE | 2023-12-08 22:18 | MM ---
Reason for Exam: Screening (asymptomatic). Last screening mammogram was performed 12 month(s) ago. Patient History: Menarche at age 14. First Full-Term at age 28. Postmenopausal. Other cancer. 11/10/2021, Benign MG stereo VAD BX RT on the right side. 12/09/2011, Benign Core Biopsy on the left side. 12/09/2011, Benign Core Biopsy on the left side. Mother had breast cancer, age 74. Risk Values: Maral 5 year model risk: 4.2%. NCI Lifetime model risk: 20.1%. Prior Study Comparison: 10/21/2021 Bilateral MG 3D diag mammo w/cad JENNIFER, [facility]. 05/14/2022 Right MG 3D diag mammo w/cad RT, [facility]. 11/12/2022 Bilateral MG 3D screening mammo w/cad, [facility]. Tissue Density: There are scattered areas of fibroglandular density. Findings: Analyzed By CAD. There is chronic bilateral nodularity. Microclip left breast from prior biopsies. There is nodularity located at the 8:00 central left breast middle depth which appears increased/new. Further evaluation is recommended. Overall Assessment: Incomplete: need additional imaging evaluation, BI-RAD 0 Management: Special View Mammogram of the left breast. Diagnostic Breast Ultrasound of the left breast. See note below in regards to the patient's markedly increased 5 year Maral score and increased lifetime risk score. [facility] will attempt to contact patient to return for supplemental views and ultrasound if indicated. Note on Maral scores and lifetime risk: 1. A Maral score greater than 3% is considered moderate risk. If this is the case, consider specialist referral to assess eligibility for a risk reducing agent. 2. If overall lifetime risk for the development of breast cancer is 20% or higher, the patient may qualify for future screening with alternating mammogram and breast MRI. Electronically signed and approved by: Jamila Blanco M.D. Radiologist
--- NOTE | 2023-12-30 14:40 | WWHP ---
[facility] - HISTORY AND PHYSICAL CHIEF COMPLAINT: The patient is here for routine gynecologic exam and mammogram. HPI: This is a 62-year-old G3, P3 with an LMP of 2009. The patient is here to establish with this office. It has been about 1 year since her last gynecologic exam. She previously saw Dr. Jamison Caro for her gynecologic care. She is status post endometrial ablation in 2009 and has been amenorrheic since then. She believes she went through the menopausal change about 12 years ago. She is without gynecologic complaints and denies any postmenopausal bleeding. PAST MEDICAL HISTORY: Cervical cancer, stage IA, treated with conization of the cervix in 1990. Also history of a panic disorder, controlled with medications. History of irritable bowel syndrome, which has been controlled with the control of her anxiety. 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 She has not used HRT. She does have a history of HPV. She denies any other type of sexually transmitted infection. She had endometrial hyperplasia without atypia that was diagnosed prior to her endometrial ablation. Followup D and C was negative. PAST SURGICAL HISTORY: NovaSure endometrial ablation was done in 2009. LEEP procedure was done prior to her cervical conization in 1990. She has had 2 breast biopsies, one on each breast. Two D and Cs in the past. Colonoscopy in 2016 and she is to do the next one after 10 years. PAST OB HISTORY: Three vaginal deliveries. SOCIAL HISTORY: She quit smoking in approximately 2005. She has about 4 alcohol-containing drinks per month. She denies drug use including marijuana. She has been since 2017 and this is her second marriage. 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 FAMILY HISTORY: Father is and had an OK and history of blood clotting disorder. Mother had breast cancer and also has atrial fibrillation. Brother had an OK and diabetes. She denies family history of cancer of the uterus, ovaries, or colon. REVIEW OF SYSTEMS: She states her weight can fluctuate by +/-10 pounds throughout the year. She is currently trying to lose weight and is trying to do this through [employer]. She denies respiratory, cardiac, or GI problems. PHYSICAL EXAM: VITAL SIGNS: Blood pressure 149/87, height 5 feet 6 inches, weight 281 pounds, temperature 98.2, pulse 69, pulse oximeter 98%, BMI 45. GENERAL: This is a well-developed, heavyset white female, who is alert and oriented x3, in no acute distress. HEENT: Within normal limits. NECK: Supple without mass or thyromegaly. CHEST AND LUNGS: Clear to auscultation. HEART: Regular rate and rhythm. Breasts are without mass or discharge. Axillary exam is negative for adenopathy. ABDOMEN: Soft, nontender, without palpable masses. PELVIC: Normal external genitalia with mild atrophy. Cervix and vagina appear normal. The cervix is somewhat shortened, consistent with her previous LEEP procedure and conization of the cervix. The cervix is slightly stenotic as well. There is no unusual discharge. The uterus is mid positioned, nongravid size, and nontender. There are no palpable adnexal masses or tenderness. Rectovaginal exam is negative for mass or tenderness and is Hemoccult negative. EXTREMITIES: Nontender. IMPRESSION: 1. 62-year-old menopausal female with normal gynecologic exam. 2. History of stage IA cervical cancer treated with conization of the cervix with no adjuvant therapy in 1990. 3. Mildly elevated blood pressure. PLAN: 1. Pap smear was performed. Her last Pap smear was normal on 10/14/[address] Caro's records. We will continue yearly Pap smears because of her history of cervical cancer in the past. The current Pap smear will be done with HPV reflex testing. 2. Screening mammogram will be done today. 3. Self-breast examination was discussed. We have reviewed the symptoms of inflammatory breast cancer. 4. Osteoporosis prevention was discussed. She had a normal bone density test on 11/17/2019. We will plan on repeating the bone density test in 1 year at her next annual well-woman examination. 5. Her elevated blood pressure was discussed. I have recommended that she check her own blood pressures at home on a regular basis and follow up with her PCP for blood pressure elevations. 6. She will return in 1 year. MMODL / IJN: [id number] /
== END | disposition home or self-care (01) ==
LOC: RADMAMWWP 12:00
PROVIDERS: ATTEND Obstetrics & Gynecology
DX: Z12.31 Encounter for screening mammogram for malignant neoplasm of breast (principal); R92.323 Mammographic fibroglandular density, bilateral breasts; Z78.0 Asymptomatic menopausal state; Z80.3 Family history of malignant neoplasm of breast
CPT/HCPCS: 77063; 77067

== ENCOUNTER → 2023-12-15 | Outpatient (CLI) | payer BC ==
--- NOTE | 2023-12-15 08:38 | MM ---
Reason for Exam: Additional evaluation requested from abnormal screening. Last screening mammogram was performed less than 1 month ago. Patient History: Menarche at age 14. First Full-Term at age 28. Postmenopausal. Other cancer. 11/10/2021, Benign MG stereo VAD BX RT on the right side. 12/09/2011, Benign Core Biopsy on the left side. 12/09/2011, Benign Core Biopsy on the left side. Mother had breast cancer, age 74. Risk Values: Maral 5 year model risk: 4.4%. NCI Lifetime model risk: 19.6%. Prior Study Comparison: 05/14/2022 Right MG 3D diag mammo w/cad RT, [facility]. 11/12/2022 Bilateral MG 3D screening mammo w/cad, [facility]. 11/17/2023 Bilateral MG 3D screening mammo w/cad, [facility]. Tissue Density: Left: The breasts are heterogeneously dense, which may obscure small masses. Findings: Analyzed By CAD. Nodular density at the left o'clock position 6.5 cm from the nipple measuring 7 mm. Ultrasound is recommended. Overall Assessment: Incomplete: need additional imaging evaluation, BI-RAD 0 Management: Diagnostic Breast Ultrasound of the left breast. . Results were given to the patient verbally at the time of exam. Patient should continue monthly self-breast exams. A clinical breast exam by your physician is recommended on an annual basis. This exam should not preclude additional follow-up of suspicious palpable abnormalities. Note on Maral scores and lifetime risk: 1. A Maral score greater than 3% is considered moderate risk. If this is the case, consider specialist referral to assess eligibility for a risk reducing agent. 2. If overall lifetime risk for the development of breast cancer is 20% or higher, the patient may qualify for future screening with alternating mammogram and breast MRI. Electronically signed and approved by: Patricio Waltesr M.D. Radiologis
--- NOTE | 2023-12-15 09:01 | USB ---
Reason for Exam: Additional evaluation requested from abnormal screening. Patient History: Menarche at age 14. First Full-Term at age 28. Postmenopausal. Other cancer. 11/10/2021, Benign MG stereo VAD BX RT on the right side. 12/09/2011, Benign Core Biopsy on the left side. 12/09/2011, Benign Core Biopsy on the left side. Mother had breast cancer, age 74. Risk Values: Maral 5 year model risk: 4.4%. NCI Lifetime model risk: 19.6%. Technique: Method: Targeted. Doppler: Color. Patient Position: Supine. Prior Study Comparison: 05/14/2022 Right MG 3D diag mammo w/cad RT, [facility]. 11/12/2022 Bilateral MG 3D screening mammo w/cad, [facility]. 11/17/2023 Bilateral MG 3D screening mammo w/cad, [facility]. Findings: The upper inner quadrant of the left breast, the axilla of the left breast and the retroareolar of the left breast were scanned. No solid or cystic masses are identified. Mildly prominent ducts are noted. Overall Assessment: Probably benign, BI-RAD 3 Management: Diagnostic Mammogram of the left breast in 6 months. A clinical breast exam by your physician is recommended on an annual basis and results should be correlated with mammographic findings. This exam should not preclude additional follow-up of suspicious palpable abnormalities. Results were given to the patient verbally at the time of exam. Electronically signed and approved by: Patricio Walters M.D. Radiologis
--- NOTE | 2023-12-21 17:05 | P.PN ---
Progress Note - Text Progress Note Date: 12/21/23 OUTPATIENT FOLLOW-UP NOTE TEST(S)/RESULTS: Mammogram done on 11/17/2023 did require a left breast workup which was done on 12/15/2023. The left breast workup included a mammogram and a left breast ultrasound. This was found to be probably benign. A 6-month left diagnostic mammogram was recommended. METHOD OF NOTIFICATION: The patient was notified by phone on 12/21/2023. PATIENT COMMENTS: Patient states she had received the results at the time of her left breast workup. DIAGNOSIS: Probably benign left breast workup following a bilateral screening mammogram. DISCUSSION: PLAN: The order for a diagnostic left breast mammogram will be mailed to the patient. She will do this in late May 2024.
== END | disposition home or self-care (01) ==
LOC: RADMAMWWP 08:02
PROVIDERS: ATTEND Obstetrics & Gynecology
DX: R92.8 Other abnormal and inconclusive findings on diagnostic imaging of breast
CPT/HCPCS: 77061; 77065

== ENCOUNTER → 2024-06-12 | Outpatient (CLI) | payer BC ==
--- NOTE | 2024-06-12 07:53 | MM ---
Reason for Exam: Follow-up at short interval from prior study. Last screening mammogram was performed 7 month(s) ago. Patient History: Menarche at age 14. First Full-Term at age 28. Postmenopausal. Other cancer. 11/10/2021, Benign MG stereo VAD BX RT on the right side. 12/09/2011, Benign Core Biopsy on the left side. 12/09/2011, Benign Core Biopsy on the left side. Mother had breast cancer, age 74. Risk Values: Maral 5 year model risk: 4.4%. NCI Lifetime model risk: 19.6%. Prior Study Comparison: 11/12/2022 Bilateral MG 3D screening mammo w/cad, [facility]. 11/17/2023 Bilateral MG 3D screening mammo w/cad, [facility]. 12/15/2023 Left MG 3D work up w/cad LT, [facility]. Tissue Density: Left: The breasts are heterogeneously dense, which may obscure small masses. Findings: Analyzed By CAD. Chronic nodularity left breast is unchanged. No new nodules or masses present. No suspicious mitral calcifications. Overall Assessment: Benign, BI-RAD 2 Management: Screening Mammogram of both breasts in 6 months. . Results were given to the patient verbally at the time of exam. Patient should continue monthly self-breast exams. A clinical breast exam by your physician is recommended on an annual basis. This exam should not preclude additional follow-up of suspicious palpable abnormalities. Note on Maral scores and lifetime risk: 1. A Maral score greater than 3% is considered moderate risk. If this is the case, consider specialist referral to assess eligibility for a risk reducing agent. 2. If overall lifetime risk for the development of breast cancer is 20% or higher, the patient may qualify for future screening with alternating mammogram and breast MRI. [facility], , 06/12/2024 7:50 AM. Electronically signed and approved by: Patricio Walters M.D. Radiologis
== END | disposition home or self-care (01) ==
LOC: RADMAMWWP 06:59
PROVIDERS: ATTEND Obstetrics & Gynecology
DX: R92.8 Other abnormal and inconclusive findings on diagnostic imaging of breast (principal); R92.333 Mammographic heterogeneous density, bilateral breasts; Z78.0 Asymptomatic menopausal state; Z80.3 Family history of malignant neoplasm of breast
CPT/HCPCS: 77061; 77065